=== PATIENT | female | born 1990 | race American Indian/Alaskan Native ===

== ENCOUNTER 2016-12-19 20:49 | Emergency (ER) | payer MEDICAID ==
[2016-12-19 21:44] VITALS: BP 130/78
== END 2016-12-20 01:35 | disposition left against medical advice (07) ==
LOC: ED 20:49
DX: H57.13 Ocular pain, bilateral (principal); Z53.21 Procedure and treatment not carried out due to patient leaving prior to being seen by health care provider

== ENCOUNTER 2017-05-29 20:07 | Emergency (ER) | payer SELFPAY ==
[2017-05-29 20:32] VITALS: BP 146/82
[2017-05-29 20:53] LABS: Eosinophils % (Auto) 0.5 % (0.0-4.3)
[2017-05-29 21:16] LABS: Anion Gap 19 mmol/L; Blood Urea Nitrogen 9 mg/dL (7-17); Calcium 9.1 mg/dL (8.4-10.2); Carbon Dioxide 22 mmol/L (22-30); Glucose 136 mg/dL (65-100); Potassium 4.1 mmol/L (3.6-5.0); Sodium 140 mmol/L (137-145)
[2017-05-29 21:24] LABS: Basophils % (Auto) 0.7 % (0.0-1.8); Hematocrit 38.5 % (30.3-42.9); Hemoglobin 12.2 gm/dl (10.1-14.3); Mean Corpuscular HGB Conc 32 % (30-34); Mean Corpuscular Volume 78 fl (79-97); Platelet Count 361 K/mm3 (140-440); Red Blood Count 4.93 M/mm3 (3.65-5.03); Red Cell Distribution Width 15.9 % (13.2-15.2); White Blood Count 14.3 K/mm3 (4.5-11.0)
[2017-05-29 21:25] LABS: Mean Corpuscular Hemoglobin 25 pg (28-32)
[2017-05-29 21:44] LABS: Bilirubin,Urine NEG (Negative); Blood,Urine NEG (Negative); Ketones,Urine NEG (Negative); Leukocyte Esterase,Urine NEG (Negative); Mucus,Urine FEW /HPF; Nitrite,Urine NEG (Negative); Protein,Urine <15 mg/dL mg/dL (Negative); Urobilinogen,Urine < 2.0 mg/dL (<2.0)
--- NOTE | 2017-06-01 14:54 | ED Elopement Review ---
ED Pt Elopement review - Results review Lab results: Laboratory Tests 05/29/17 05/29/17 05/29/17 20:39 20:39 20:39 WBC 14.3 H RBC 4.93 Hgb 12.2 Hct 38.5 MCV 78 L MCH 25 L MCHC 32 RDW 15.9 H Plt Count 361 Lymph % (Auto) 27.9 [place] % (Auto) 6.4 Eos % (Auto) 0.5 Baso % (Auto) 0.7 Lymph # 4.0 [place] # 0.8 Eos # 0.1 Baso # 0.1 Seg Neutrophils % 63.9 Seg Neutrophils # 8.2 H Sodium 140 Potassium 4.1 Chloride 103.0 Carbon Dioxide 22 Anion Gap 19 BUN 9 Creatinine 0.3 L Estimated GFR > 60 BUN/Creatinine Ratio 30.00 Glucose 136 H Calcium 9.1 Troponin T < 0.010 TSH < 0.005 L Free T4 2.17 H Urine Color Urine Turbidity Urine pH Ur Specific [place] Urine Protein Urine Glucose (UA) Urine Ketones Urine Blood Urine Nitrite Ur Reducing Substances Urine Bilirubin Urine Ictotest Urine Urobilinogen Ur Leukocyte Esterase Urine WBC (Auto) Urine RBC (Auto) U Epithel Cells (Auto) Urine Mucus Urine HCG, Qual 05/29/17 21:30 WBC RBC Hgb Hct MCV MCH MCHC RDW Plt Count Lymph % (Auto) [place] % (Auto) Eos % (Auto) Baso % (Auto) Lymph # [place] # Eos # Baso # Seg Neutrophils % Seg Neutrophils # Sodium Potassium Chloride Carbon Dioxide Anion Gap BUN Creatinine Estimated GFR BUN/Creatinine Ratio Glucose Calcium Troponin T TSH Free T4 Urine Color Yellow Urine Turbidity Clear Urine pH 5.0 Ur Specific [place] 1.020 Urine Protein <15 mg/dl Urine Glucose (UA) Neg Urine Ketones Neg Urine Blood Neg Urine Nitrite Neg Ur Reducing Substances Not Reportable Urine Bilirubin Neg Urine Ictotest Not Reportable Urine Urobilinogen < 2.0 Ur Leukocyte Esterase Neg Urine WBC (Auto) 1.0 Urine RBC (Auto) 1.0 U Epithel Cells (Auto) 6.0 Urine Mucus Few Urine HCG, Qual Negative - Call Back decision Pt Call Back Decision: Call pt to return to ED [facility] (patient is hypothyroid and tachycardic. Shortness of breath with tachycardia should be further evaluated)
== END 2017-05-29 23:25 | disposition left against medical advice (07) ==
LOC: ED 20:07
DX: R07.9 Chest pain, unspecified (principal); Z53.21 Procedure and treatment not carried out due to patient leaving prior to being seen by health care provider
CPT/HCPCS: 36415; 80048; 81001; 81025; 84439; 84443; 84484; 85025; 87086; 93005; 93010